=== PATIENT | male | born 1985 | race African-American/Black ===

== ENCOUNTER → 2018-05-04 | Emergency (ER) | payer MEDICAID ==
[~2018-05-04] VITALS: Ht 180.3 cm; Wt 83.9 kg
[~2018-05-04] MED LIST: IBUPROFEN 400 MG TABLET ONE; IBUPROFEN 400 MG TABLET PO ONE
--- NOTE | 2018-05-04 12:54 | NUR ---
ION X 4 WALKING WITH STEADY GAIT AND CURRENTLY RESTING EKG DONEPT BROUGHT IN FROM HOME ACCOMPANIED BY FRIEND FOR CONSTANT PRESSURE AROUND CHEST PT ALERT WITH ORIENTAT
[2018-05-04 13:20] LABS: CALCIUM, SERUM 9.4 mg/dL (8.5-10.1); CARBON DIOXIDE 26 mmol/L (21-32); CHLORIDE 104 mmol/L (98-107); CREATININE 1.1 mg/dL (0.6-1.3); GLUCOSE 88 mg/dL (74-106); POTASSIUM 4.1 mmol/L (3.5-5.1); SODIUM SERUM 141 mmol/L (136-145); UREA NITROGEN, BLOOD 12 mg/dL (7-18)
[2018-05-04 13:21] LABS: EOSINOPHILS % (AUTO) 1.4 % (0.0-6.0); HEMATOCRIT 44 % (39-51); HEMOGLOBIN 14.6 g/dL (13.5-17.5); LYMPHOCYTES % (AUTO) 26.2 % (20.0-44.0); MEAN CORPUSCULAR HGB CONC 33 g/dl (31.0-36.0); MEAN CORPUSCULAR VOLUME 85 fL (80-96); MONOCYTES # (AUTO) 0.4 /CMM (0.1-1.30); MONOCYTES % (AUTO) 10.7 % (2.0-12.0); NEUTROPHILS # (AUTO) 2.4 /CMM (1.8-8.9); NEUTROPHILS % (AUTO) 60.7 % (43.0-81.0); PLATELET COUNT (AUTO) 209 /CMM (150-450); WHITE BLOOD COUNT (AUTO) 3.9 K/uL (4.3-11.0)
[2018-05-04 13:47] VITALS: BP 119/80
--- NOTE | 2018-05-04 13:48 | NUR ---
PT LABS NEGATIVE GIVEN MEDICATION AND ACI DISCHARGED WITH FIREND WILL FOLLOW UP WITH PMD
== END | disposition home or self-care (01) ==
LOC: ER 12:22
DX: R07.89 Other chest pain (principal); I10 Essential (primary) hypertension
CPT/HCPCS: 36415; 71045-TC; 80048-TC; 84484-TC; 85025-TC; 85730-TC; A4606; Z7610